=== PATIENT | male | born 1995 | race Caucasian/White ===

== ENCOUNTER 2016-06-26 18:23 | Emergency (ER) | payer MEDICAID ==
[~2016-06-26] VITALS: Ht 170.2 cm; Wt 68.0 kg
[2016-06-26 18:51] VITALS: BP 142/91
--- NOTE | 2016-06-26 20:01 | NUR ---
AMBULATED TO ER BED 5
--- NOTE | 2016-06-26 20:20 | NUR ---
21 Y/O HERE C/O PAIN TO L HIP THAT RADIATES TO L LEG X 1 MTH. PT STATES WAS SEEN AND TREATED FOR THIS BUT PAIN NOT IMPROVING. ER MD AWARED OF IT.
[2016-06-26] MEDS ORDERED: KETOROLAC 30 MG/ML VIAL IM ONE (20:40)
[2016-06-26] MEDS ORDERED: DEXAMETHASONE 4 MG/ML VIAL PO ONE (20:40)
[2016-06-26] MEDS ORDERED: DIAZEPAM 5 MG TAB PO ONE (20:40)
--- NOTE | 2016-06-26 22:03 | NUR ---
PT TAKEN FOR XRAY.
[2016-06-26 22:42] VITALS: BP 116/76
--- NOTE | 2016-06-26 22:42 | NUR ---
Patient discharged with v/s stable. Written and verbal after care instructions given and explained. Patient alert, oriented and verbalized understanding of instructions. Ambulatory with steady gait. All questions addressed prior to discharge. ID band removed. Patient advised to follow up with PMD. Rx of MOTRIN, AND ROBAXIN given. Patient educated on indication of medication including possible reaction and side effects. Opportunity to ask questions provided and answered.
== END 2016-06-26 22:42 | disposition home or self-care (01) ==
LOC: MED 18:23
DX: M54.32 Sciatica, left side (principal); F17.210 Nicotine dependence, cigarettes, uncomplicated; Z71.6 Tobacco abuse counseling
CPT/HCPCS: 72110; 96372; 99284; J1100; J1885

== ENCOUNTER 2016-07-11 15:07 | Emergency (ER) | payer MEDICAID ==
[~2016-07-11] VITALS: Ht 170.2 cm; Wt 68.0 kg
[2016-07-11 15:43] VITALS: BP 146/95
--- NOTE | 2016-07-11 19:22 | NUR ---
Patient ambulated to bed 8. RN evaluating patient at bedside.
--- NOTE | 2016-07-11 19:40 | NUR ---
PT IS A 21/M BIB SELF TO ED WITH C/O LEFT LEG PAIN X FEW WEEKS. 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 DENIES N/D; SKIN IS PINK/WARM/DRY; AAOX4 WITH EVEN AND STEADY GAIT; LUNGS CLEAR BL; HR EVEN AND REGULAR; PT DENIES ANY FEVER, CP, SOB, OR COUGH AT THIS TIME; PATIENT STATES PAIN OF 8/10 AT THIS TIME; VSS; PATIENT POSITIONED FOR COMFORT; HOB ELEVATED; BEDRAILS UP X2; BED DOWN. ER MD MADE AWARE OF PT STATUS.
--- NOTE | 2016-07-11 20:00 | NUR ---
Patient being evaluated by physician at bedside.
[2016-07-11] MEDS ORDERED: KETOROLAC 60 MG/2 ML VIAL IM ONE (20:05)
[2016-07-11] MEDS ORDERED: MORPHINE SULFATE 4 MG/ML SYR IM ONE (20:35)
[2016-07-11 21:46] VITALS: BP 124/79
--- NOTE | 2016-07-11 21:46 | NUR ---
Patient discharged with v/s stable. Written and verbal after care instructions given and explained. Patient alert, oriented and verbalized understanding of instructions. Ambulatory with steady gait. All questions addressed prior to discharge. ID band removed. Patient advised to follow up with PMD. Rx of GABAPENTIN, NORCO, MOTRIN given. Patient educated on indication of medication including possible reaction and side effects. Opportunity to ask questions provided and answered.
== END 2016-07-11 21:46 | disposition home or self-care (01) ==
LOC: MED 15:07
DX: M54.42 Lumbago with sciatica, left side (principal); F17.200 Nicotine dependence, unspecified, uncomplicated
CPT/HCPCS: 96372; 99284; J1885; J2270